=== PATIENT | female | born 1950 | race Caucasian/White ===

== ENCOUNTER 2017-01-24 14:08 | Outpatient (CLI) | payer MEDICARE | END 2017-01-24 14:09 | disposition home or self-care (01) | DX: Z87.19 Personal history of other diseases of the digestive system (principal); E78.5 Hyperlipidemia, unspecified; Z78.9 Other specified health status ==

== ENCOUNTER 2017-02-08 13:33 | Outpatient (CLI) | payer MEDICARE, OTHER | END 2017-02-08 13:34 | disposition home or self-care (01) | DX: Z12.31 Encounter for screening mammogram for malignant neoplasm of breast (principal) ==

== ENCOUNTER 2017-02-08 14:10 | Outpatient (CLI) | payer MEDICARE, OTHER | END 2017-02-08 14:11 | disposition home or self-care (01) | DX: M85.89 Other specified disorders of bone density and structure, multiple sites (principal) ==

== ENCOUNTER 2017-02-28 16:16 | Outpatient (CLI) | payer MEDICARE, OTHER | END 2017-02-28 16:17 | disposition home or self-care (01) | DX: R10.9 Unspecified abdominal pain (principal); Z87.19 Personal history of other diseases of the digestive system ==

== ENCOUNTER 2017-03-01 09:15 | Outpatient (CLI) | payer MEDICARE, OTHER ==
[2017-03-01] MEDS ORDERED: IOPAMIDOL-300 50 ML VIAL PO ONE (12:24)
[2017-03-01] MEDS ORDERED: IOPAMIDOL-300 100 ML VIAL IVP ONE (12:24)
== END 2017-03-01 09:16 | disposition home or self-care (01) ==
DX: R10.9 Unspecified abdominal pain (principal); Z87.19 Personal history of other diseases of the digestive system; K57.30 Diverticulosis of large intestine without perforation or abscess without bleeding
CPT/HCPCS: 74177; Q9967

== ENCOUNTER 2018-01-08 11:07 | Outpatient (CLI) | payer MEDICARE, OTHER ==
[2018-01-08 12:25] LABS: BASOPHILS # (AUTO) 0.1 10^3/uL (0.0-0.1); BASOPHILS % (AUTO) 1.1 %; EOSINOPHILS # (AUTO) 0.1 10^3/uL (0.0-0.7); EOSINOPHILS % (AUTO) 2.7 %; HGB - HEMOGLOBIN 14.4 g/dL (12.0-16.0); LYMPHOCYTES % (AUTO) 20.6 %; MEAN CORPUSCULAR HEMOGLOBIN 31.2 pg (27.0-31.0); MEAN CORPUSCULAR VOLUME 91.6 fL (81.0-99.0); MEAN PLATELET VOLUME 8.3 fL (7.9-10.8); MONOCYTES # (AUTO) 0.5 10^3/uL (0.0-1.0); MONOCYTES % (AUTO) 9.2 %; NEUTROPHILS # (AUTO) 3.3 10^3/uL (1.5-6.6); NEUTROPHILS % (AUTO) 66.4 %; PLT - PLATELET COUNT 197 10^3/uL (130-450); RED BLOOD COUNT 4.63 10^6/uL (4.20-5.40); RED CELL DISTRIBUTION WIDTH 12.9 % (12.0-15.0)
[2018-01-08 12:43] LABS: ALBUMIN 4.4 g/dL (3.2-5.5); ALBUMIN/GLOBULIN RATIO 1.4 (1.0-2.2); ALKALINE PHOSPHATASE 57 IU/L (42-121); ALT ALANINE AMINOTRANSFERASE 20 IU/L (10-60); AST ASPARTATE AMINOTRANSFERASE 24 IU/L (10-42); BILIRUBIN,TOTAL 0.3 mg/dL (0.2-1.0); BUN - BLOOD UREA NITROGEN 12 mg/dL (6-20); CALCIUM 9.6 mg/dL (8.5-10.3); CARBON DIOXIDE - CO2 27 mmol/L (21-32); CHLORIDE 101 mmol/L (101-111); CHOL/HDL RATIO 3.7 (<4.4); CHOLESTEROL 195 mg/dL; CREATININE 0.6 mg/dL (0.4-1.0); GFR - MDRD 100 (>89); GLUCOSE 100 mg/dL (70-100); HDL CHOLESTEROL 53 mg/dL; LDL CHOLESTEROL,CALCULATED 108 mg/dL; SODIUM 140 mmol/L (135-145); TOTAL PROTEIN 7.6 g/dL (6.7-8.2); VLDL CHOLESTEROL 34 mg/dL
== END 2018-01-08 11:08 | disposition home or self-care (01) ==
LOC: LAB 11:07
PROVIDERS: ATTEND Family Medicine
DX: M85.80 Other specified disorders of bone density and structure, unspecified site (principal); E78.5 Hyperlipidemia, unspecified
CPT/HCPCS: 36415; 80053; 80061; 83721; 85025

== ENCOUNTER 2018-02-11 16:39 | Outpatient (CLI) | payer MEDICARE, OTHER ==
[2018-02-11 16:58] LABS: BASOPHILS # (AUTO) 0.1 10^3/uL (0.0-0.1); BASOPHILS % (AUTO) 0.9 %; EOSINOPHILS # (AUTO) 0.1 10^3/uL (0.0-0.7); EOSINOPHILS % (AUTO) 1.8 %; HGB - HEMOGLOBIN 14.3 g/dL (12.0-16.0); LYMPHOCYTES # (AUTO) 1.7 10^3/uL (1.5-3.5); LYMPHOCYTES % (AUTO) 26.5 %; MEAN CORPUSCULAR HEMOGLOBIN 30.5 pg (27.0-31.0); MEAN CORPUSCULAR HGB CONC 32.9 g/dL (32.0-36.0); MEAN CORPUSCULAR VOLUME 92.6 fL (81.0-99.0); MEAN PLATELET VOLUME 7.6 fL (7.9-10.8); MONOCYTES # (AUTO) 0.7 10^3/uL (0.0-1.0); MONOCYTES % (AUTO) 11.2 %; NEUTROPHILS # (AUTO) 3.8 10^3/uL (1.5-6.6); NEUTROPHILS % (AUTO) 59.6 %; PLT - PLATELET COUNT 230 10^3/uL (130-450); RED CELL DISTRIBUTION WIDTH 12.9 % (12.0-15.0); WHITE BLOOD COUNT 6.3 x10^3/uL (4.8-10.8)
[2018-02-11 17:09] LABS: ALBUMIN 4.3 g/dL (3.2-5.5); ALBUMIN/GLOBULIN RATIO 1.5 (1.0-2.2); BILIRUBIN,TOTAL 0.6 mg/dL (0.2-1.0); CALCIUM 9.7 mg/dL (8.5-10.3); CREATININE 0.6 mg/dL (0.4-1.0); TOTAL PROTEIN 7.2 g/dL (6.7-8.2)
[2018-02-11] MEDS ORDERED: IOPAMIDOL-300 50 ML VIAL ONE (17:20)
[2018-02-11] MEDS ORDERED: IOPAMIDOL-300 100 ML VIAL ONE (17:20)
[2018-02-11] MEDS ORDERED: IOPAMIDOL-300 50 ML VIAL PO ONE (19:01)
[2018-02-11] MEDS ORDERED: IOPAMIDOL-300 100 ML VIAL IVP ONE (19:01)
--- NOTE | 2018-02-11 19:33 | CT Preliminary Report ---
Exam: CT ABDOMEN/PELVIS W/ IMPRESSION: Negative CT abdomen and pelvis without findings to explain right-sided pain. [facility] SITE ID: [id number]
--- NOTE | 2018-02-11 19:33 | CT Report ---
EXAM: CT ABDOMEN AND PELVIS EXAM DATE: 02/11/2018 07:01 PM. CLINICAL HISTORY: ABDOMINAL PAIN, RLQ. COMPARISONS: 03/01/2017. TECHNIQUE: Routine helical CT imaging was performed through the abdomen and pelvis. IV contrast: 50 M L ISOVUE 300. Enteric contrast: Yes. Reconstructions: Coronal and sagittal. In accordance with CT protocol optimization, one or more of the following dose reduction techniques w ere utilized for this exam: automated exposure control, adjustment of mA and/or KV based on patient s ize, or use of iterative reconstructive technique. FINDINGS: Lung Bases: Minimal wispy lateral bibasilar atelectasis. Liver: Normal. No masses. Gallbladder/Bile Ducts: Unremarkable. Spleen: Normal. Pancreas: Normal. Adrenal Glands: Normal. Kidneys: 2 cm simple cyst upper pole right kidney, increased from before. Left kidney unremarkable. N o hydronephrosis. Peritoneal Cavity/Bowel: Stomach and small bowel are unremarkable. The appendix is not clearly identi fied. Enteric contrast reaches the proximal transverse colon at the time of the scan. There is a smal l amount of formed stool in the colon. There is mild sigmoid colon diverticulosis. There is no don lonic fat stranding. There is no lymphadenopathy, ascites, or pneumoperitoneum. Pelvic Organs: The bladder, pancreas, and adrenal glands are unremarkable. Vasculature: There is minimal calcification in the normal caliber abdominal aorta. Otherwise unremark able. Bones: Mild bilateral L4-L5 and L5-S1 facet osteoarthritis. Mild degenerative disk disease L3-L4. Other: Abdominal wall unremarkable. IMPRESSION: Negative CT abdomen and pelvis without findings to explain right-sided pain. [facility] Referring Provider Line: [phone] SITE ID: [id number]
== END 2018-02-11 16:40 | disposition home or self-care (01) ==
LOC: LAB 16:39 → DI 16:40
PROVIDERS: ATTEND Family Medicine
DX: R10.31 Right lower quadrant pain (principal)
CPT/HCPCS: 36415; 74177; 80053; 85025; Q9967

== ENCOUNTER 2018-02-13 13:12 | Outpatient (CLI) | payer MEDICARE, OTHER ==
--- NOTE | 2018-02-14 14:06 | Mammography Report ---
DIGITAL BILATERAL SCREENING MAMMOGRAM: 02/13/2018 COMPARISON: Mammogram 02/08/2017. INDICATION: Screening. TECHNIQUE: Bilateral CC and MLO breast views. FINDINGS: The breast parenchyma is heterogeneously dense which may limit the sensitivity of mammography. No dominant mass, architectural distortion, or concerning cluster of microcalcifications are seen. IMPRESSION: 1. BI-RADS CATEGORY 1-NEGATIVE. 2. RECOMMEND ANNUAL SCREENING MAMMOGRAM. STANDARD QUALIFYING STATEMENTS: 1. This examination was reviewed with the aid of Computer-Aided Detection (CAD) . 2. A negative or benign imaging report should not delay biopsy if clinically suspicious findings are present. Consider surgical consultation if warranted. More than 5 % of cancers are not identified by imaging. 3. Dense breasts may obscure an underlying neoplasm. TD: 02/14/2018 14:04 CHRISTINE
== END 2018-02-13 13:13 | disposition home or self-care (01) ==
LOC: DI 13:12
PROVIDERS: ATTEND Family Medicine
DX: Z12.31 Encounter for screening mammogram for malignant neoplasm of breast (principal)
CPT/HCPCS: 77067

== ENCOUNTER 2018-04-09 08:00 | Outpatient (CLI) | payer MEDICARE, OTHER | END 2018-04-09 08:01 | disposition home or self-care (01) | LOC: LAB.R 08:00 | PROVIDERS: ATTEND Family Medicine | DX: R30.0 Dysuria (principal) | CPT/HCPCS: 87086 ==

== ENCOUNTER 2018-04-23 12:57 | Outpatient (CLI) | payer MEDICARE, OTHER ==
[2018-04-23 18:48] LABS: HGB - HEMOGLOBIN 13.6 g/dL (12.0-16.0); MEAN CORPUSCULAR HEMOGLOBIN 30.5 pg (27.0-31.0); MEAN CORPUSCULAR HGB CONC 32.5 g/dL (32.0-36.0); MEAN CORPUSCULAR VOLUME 93.9 fL (81.0-99.0); MEAN PLATELET VOLUME 8.1 fL (7.9-10.8); RED BLOOD COUNT 4.45 10^6/uL (4.20-5.40); RED CELL DISTRIBUTION WIDTH 12.8 % (12.0-15.0)
[2018-04-23 19:09] LABS: URIC ACID 4.3 mg/dL (2.6-7.2)
[2018-04-23 19:11] LABS: CRP - C-REACTIVE PROTEIN < 1.0 mg/dL (0-1.0)
[2018-04-23 19:37] LABS: RHEUMATOID FACTOR NEGATIVE (Negative)
== END 2018-04-23 12:58 | disposition home or self-care (01) ==
LOC: LAB.WCP 12:57
PROVIDERS: ATTEND Family Medicine
DX: R79.82 Elevated C-reactive protein (CRP) (principal)
CPT/HCPCS: 36415; 84550; 85027; 85651; 86140; 86200; 86430

== ENCOUNTER 2019-04-20 16:43 | Outpatient (CLI) | payer MEDICARE, OTHER ==
--- NOTE | 2019-04-21 10:29 | Mammography Report ---
Reason: SCREENING MAMMO Procedure Date: 04/20/2019 Accession Number: [id number] / [id number] Procedure: [facility] - Screening Mammo w/Jose CPT Code: FULL RESULT: EXAM: Screening Mammo w/Jose DATE: 04/20/2019 5:17 PM CLINICAL HISTORY: Screening encounter. No reported risk factors. TECHNIQUE: (B) - Bilateral CC and MLO views were obtained. COMPARISON: 02/13/2018 and 02/08/2017. PARENCHYMAL PATTERN: (A) - The breast(s) demonstrate(s) scattered fibroglandular densities. FINDINGS: There are no suspicious masses, calcifications, or areas of distortion. IMPRESSION: Negative examination. BI-RADS category 1. RECOMMENDATION: (ANNUAL) - Recommend routine annual screening mammography. BI-RADS CATEGORY: (1) - Negative. STANDARD QUALIFYING STATEMENTS: 1. This examination was not reviewed with the aid of Computer-Aided Detection (CAD). 2. A negative or benign imaging report should not preclude biopsy if clinically suspicious findings are present. 3. Dense breasts may obscure an underlying neoplasm. 4. This examination was reviewed with the aid of 3D breast imaging (tomosynthesis).
== END 2019-04-20 16:44 | disposition home or self-care (01) ==
LOC: DI 16:43
DX: Z12.31 Encounter for screening mammogram for malignant neoplasm of breast (principal)
CPT/HCPCS: 77063; 77067

== ENCOUNTER 2019-07-30 14:32 | Outpatient (CLI) | payer MEDICARE, OTHER ==
--- NOTE | 2019-07-31 13:39 | XRAY Report ---
Reason: RIGHT KNEE PAIN Procedure Date: 07/30/2019 Accession Number: [id number] / [id number] Procedure: [facility] - Knee 3 View RT CPT Code: FULL RESULT: EXAM: RIGHT KNEE RADIOGRAPHY EXAM DATE: 07/30/2019 02:32 PM. CLINICAL HISTORY: RIGHT KNEE PAIN. COMPARISON: None. TECHNIQUE: 3 views. FINDINGS: Bones: Normal. No fractures or bone lesions. Joints: Normal. No effusion. No subluxations. Soft Tissues: Normal. No soft tissue swelling. IMPRESSION: Normal knee radiography. [facility]
== END 2019-07-30 23:59 | disposition home or self-care (01) ==
LOC: DI.WCP 14:32
PROVIDERS: ATTEND Family Medicine
DX: M25.561 Pain in right knee (principal)

== ENCOUNTER 2019-10-06 13:45 | Outpatient (CLI) | payer MEDICARE, OTHER ==
[2019-10-06] MEDS ORDERED: IOVERSOL 320 50 ML VIAL ONE (14:17)
[2019-10-06] MEDS ORDERED: IOVERSOL 320 100 ML VIAL IVP ONE ×2 (14:17→16:56)
[2019-10-06 14:20] LABS: BASOPHILS # (AUTO) 0.1 10^3/uL (0.0-0.1); BASOPHILS % (AUTO) 0.6 %; EOSINOPHILS # (AUTO) 0.1 10^3/uL (0.0-0.7); EOSINOPHILS % (AUTO) 1.6 %; HGB - HEMOGLOBIN 15.1 g/dL (12.0-16.0); LYMPHOCYTES # (AUTO) 1.7 10^3/uL (1.5-3.5); LYMPHOCYTES % (AUTO) 19.4 %; MEAN CORPUSCULAR HEMOGLOBIN 30.3 pg (27.0-31.0); MEAN CORPUSCULAR HGB CONC 31.9 g/dL (32.0-36.0); MEAN PLATELET VOLUME 9.7 fL (7.9-10.8); MONOCYTES # (AUTO) 0.7 10^3/uL (0.0-1.0); MONOCYTES % (AUTO) 7.9 %; PLT - PLATELET COUNT 285 10^3/uL (130-450); RED BLOOD COUNT 4.99 10^6/uL (4.20-5.40); RED CELL DISTRIBUTION WIDTH 12.7 % (12.0-15.0); WHITE BLOOD COUNT 8.6 x10^3/uL (4.8-10.8)
[2019-10-06 14:35] LABS: ALBUMIN 4.2 g/dL (3.2-5.5); ALBUMIN/GLOBULIN RATIO 1.2 (1.0-2.2); BILIRUBIN,TOTAL 0.3 mg/dL (0.2-1.0); CALCIUM 9.7 mg/dL (8.5-10.3); CREATININE 0.6 mg/dL (0.4-1.0); TOTAL PROTEIN 7.7 g/dL (6.7-8.2)
--- NOTE | 2019-10-06 15:46 | CT Report ---
Reason: ABD PAIN RLQ Procedure Date: 10/06/2019 Accession Number: [id number] / [id number] Procedure: CT - Abdomen/Pelvis W CPT Code: Final Report FULL RESULT: EXAM: CT ABDOMEN AND PELVIS EXAM DATE: 10/06/2019 03:00 PM. CLINICAL HISTORY: Abdominal pain right lower quadrant. COMPARISONS: ABDOMEN/PELVIS W/ 02/11/2018 6:43 PM. ABDOMEN/PELVIS W/ 03/01/2017 12:17 PM. TECHNIQUE: Routine helical CT imaging was performed through the abdomen and pelvis. IV contrast: Opti 320 90 mL. Enteric contrast: Yes. Reconstructions:Coronal and sagittal. In accordance with CT protocol optimization, one or more of the following dose reduction techniques were utilized for this exam: automated exposure control, adjustment of mA and/or KV based on patient size, or use of iterative reconstructive technique. FINDINGS: Lung Bases: Unremarkable. Liver: Normal. No masses. Gallbladder/Bile Ducts: Unremarkable. Spleen: Normal. Pancreas: Normal. Adrenal Glands: Normal. Kidneys: Stable indeterminate right superior pole 2.3 cm hypodensity. No hydronephrosis. This finding is enlarged compared to 2017. Peritoneal Cavity/Bowel: There is marked distention of the stomach with prominent thickening and partial distention of the pylorus and proximal portion of the first duodenum, suggestion of masslike circumferential thickening causing partial gastric outlet obstruction. The descending colon is collapsed with subtle mucosal hyperenhancement and engorgement of the vascular arcade which can be seen with colitis. The sigmoid colon is normally filled with stool but appears to be thickened in the region of diverticuli without definite focal diverticulitis at this time, potentially resolving or prior diverticulitis in this area. There is no lymphadenopathy by size criteria. There is no bowel obstruction. There is no free fluid or free air. The patient is status post appendectomy. Pelvic Organs: Normal. The bladder and visualized pelvic organs are within normal limits. Vasculature: No aneurysms or other significant abnormality. Bones: No significant abnormality. Other: None. IMPRESSION: Recommend upper endoscopy for clarification of the status of the pyloric sphincter and proximal duodenum with question of partial gastric outlet obstruction as described above. Segmental thickening and engorgement of the descending colon with additional segment of thickened bowel in the sigmoid colonic distribution. Colitis or recent diverticulitis would be in the differential diagnosis. Recommend routine retroperitoneal ultrasound for clarification of the hypodense lesion in the superior pole of the right kidney, determine whether this may represent a simple cyst or warrants further workup. [facility] The call report notification system was initiated by Dr. Juan Cao at 03:34 PM on 10/06/2019. The above call report findings were discussed with Dr Gaitan by Dr. Juan Cao at 03:43 PM on 10/06/2019.
[2019-10-06] MEDS ORDERED: IOVERSOL 320 50 ML VIAL PO ONE (16:56)
== END 2019-10-06 13:46 | disposition home or self-care (01) ==
LOC: DI 13:45
PROVIDERS: ATTEND Family Medicine
DX: R10.31 Right lower quadrant pain (principal); K31.89 Other diseases of stomach and duodenum; N28.9 Disorder of kidney and ureter, unspecified
CPT/HCPCS: 36415; 74177; 80053; 83690; 85025; Q9967

== ENCOUNTER 2019-10-14 08:45 | Day surgery (SDC) | payer MEDICARE, OTHER ==
[2019-10-14] MEDS ORDERED: MIDAZOLAM 2 MG/2 ML VIAL IVP ONE (08:46)
[2019-10-14] MEDS ORDERED: fentaNYL 250 MCG/5 ML VIAL IVP ONE (08:46)
[2019-10-14] MEDS ORDERED: LACTATED RINGERS 1,000 ML IV ONE (09:06)
[2019-10-14] MEDS ORDERED: ONDANSETRON 4 MG/2 ML VIAL ONE (10:48)
[2019-10-14] MEDS ORDERED: SCOPOLAMINE PATCH TOP ONE (10:48)
[2019-10-14] MEDS ORDERED: LIDO GARGLE 30 ML BOTTLE PO ONE (11:24)
[2019-10-14] MEDS ORDERED: LIDO GARGLE 30 ML BOTTLE ONE (11:29)
[2019-10-14 13:19] VITALS: BP 94/62
== END 2019-10-14 08:46 | disposition home or self-care (01) ==
LOC: SDS 08:45
PROVIDERS: ATTEND Surgery
PROC: 0DB68ZZ Excision of Stomach, Via Natural or Artificial Opening Endoscopic (ICD-10-PCS; 2019-10-14)
PROC: 0DB38ZZ Excision of Lower Esophagus, Via Natural or Artificial Opening Endoscopic (ICD-10-PCS; 2019-10-14)
PROC: 0DJD8ZZ Inspection of Lower Intestinal Tract, Via Natural or Artificial Opening Endoscopic (ICD-10-PCS; principal; 2019-10-14 10:15)
PROC: 0DB98ZZ Excision of Duodenum, Via Natural or Artificial Opening Endoscopic (ICD-10-PCS; 2019-10-14 10:15)
DX: Z12.11 Encounter for screening for malignant neoplasm of colon (principal); K22.70 Barrett's esophagus without dysplasia; K31.7 Polyp of stomach and duodenum; K57.30 Diverticulosis of large intestine without perforation or abscess without bleeding; K44.9 Diaphragmatic hernia without obstruction or gangrene; K64.8 Other hemorrhoids; Z90.49 Acquired absence of other specified parts of digestive tract; Z87.19 Personal history of other diseases of the digestive system; Z87.891 Personal history of nicotine dependence
CPT/HCPCS: 43239; A9270; G0121; J3010; J3490; J7120

== ENCOUNTER 2020-06-16 16:36 | Outpatient (CLI) | payer MEDICARE, OTHER | END 2020-06-16 16:37 | disposition critical access hospital (66) | LOC: EMS 16:36 | PROVIDERS: ATTEND Surgery | DX: S89.92XA Unspecified injury of left lower leg, initial encounter (principal); W17.89XA Other fall from one level to another, initial encounter; Y93.01 Activity, walking, marching and hiking; Y92.008 Other place in unspecified non-institutional (private) residence as the place of occurrence of the external cause | CPT/HCPCS: A0425; A0429 ==

== ENCOUNTER 2020-06-16 16:57 | Emergency (ER) | payer MEDICARE, OTHER ==
[2020-06-16] MEDS ORDERED: HYDROcod/ACETAM 5/325 MG TABLET PO STA (17:31)
--- NOTE | 2020-06-16 18:54 | XRAY Report ---
PROCEDURE: Ankle 3 View LT INDICATIONS: Trauma, fall, with pain and swelling of the left ankle TECHNIQUE: 3 views of the ankle were acquired. COMPARISON: None FINDINGS: Bones: No fractures or dislocations. Ankle mortise is normally aligned. No suspicious bony lesions . Soft tissues: No tibiotalar joint effusion. Achilles tendon appears normal. IMPRESSION: Normal left ankle radiographs Reviewed by: Erick Phelan MD on 06/16/2020 6:53 PM PDT Approved by: Erick Phelan MD on 06/16/2020 6:53 PM PDT Station ID: [id number]
--- NOTE | 2020-06-16 18:55 | XRAY Report ---
PROCEDURE: Knee 4 View LT INDICATIONS: Trauma, fall, left knee pain and swelling TECHNIQUE: 3 views of the left knee(s) were acquired. COMPARISON: None. FINDINGS: These images demonstrate linear lucencies through the articular surface of the lateral tibial plateau which suggest a mildly depressed tibial plateau fracture. There is also a band of sclerosis subjacen t to the articular surface which presumably represents increased density due to trabecular compaction . There is a lipohemarthrosis. IMPRESSION: Depressed lateral tibial plateau fracture with moderate-sized lipohemarthrosis. Reviewed by: Erick Phelan MD on 06/16/2020 6:54 PM PDT Approved by: Erick Phelan MD on 06/16/2020 6:54 PM PDT Station ID: [id number]
[2020-06-16] MEDS ORDERED: HYDROcod/ACET 5/325 Prepack 4 PO STA (19:21)
--- NOTE | 2020-06-16 19:25 | ED Physician Documentation ---
PD HPI LOWER EXT INJURY - Stated complaint Stated Complaint: KNEE INJURY - Chief complaint Chief Complaint: Trauma Ext - History obtained from History obtained from: Patient - Additional information Additional information: Patient comes emergency department complaining of left knee pain after accidentally stepping 2 to 3 feet off her deck. Patient states she was not expecting the step off the deck and came down very hard on her left lower extremity. She states she landed on her foot, but noticed a "pop" and felt immediately pain in her knee. She states she also has noticed a little bit of pain and swelling in the left ankle. Patient states she did not have any other injuries. She has no prior history of injury to her left knee. Patient denies any other complaints at this time. She states the incident happened earlier today. She has not been able to bear weight because of the pain. Review of Systems Ten Systems: 10 systems reviewed and negative Constitutional: reports: Reviewed and negative Eyes: reports: Reviewed and negative Ears: reports: Reviewed and negative Nose: reports: Reviewed and negative Throat: reports: Reviewed and negative Cardiac: reports: Reviewed and negative Respiratory: reports: Reviewed and negative GI: reports: Reviewed and negative : reports: Reviewed and negative Skin: reports: Reviewed and negative Musculoskeletal: reports: Joint pain (Left knee and left ankle.), Joint swelling Neurologic: reports: Reviewed and negative Psychiatric: reports: Reviewed and negative Endocrine: reports: Reviewed and negative Immunocompromised: reports: Reviewed and negative PD PAST MEDICAL HISTORY - Past Medical History Past Medical History: No - Past Surgical History Past Surgical History: No - Present Medications Home Medications: Ambulatory Orders Medication Instructions Recorded Confirmed Citalopram Hydrobromide [Celexa] 40 mg PO DAILY 10/13/19 10/13/19 Lorazepam [Ativan] 1 mg PO PRN PRN 10/13/19 10/13/19 Rabeprazole Sodium [Aciphex] 20 mg PO DAILY 10/13/19 10/13/19 Rizatriptan Benzoate [Maxalt] 30 mg PO PRN PRN 10/13/19 10/13/19 Simvastatin 40 mg PO DAILY 10/13/19 10/13/19 Hydrocodone/Acetaminophen 1 - 2 each PO Q6H PRN #30 tablet 06/16/20 [Hydrocodon-Acetaminophen 5-325] - Allergies Allergies/Adverse Reactions: Allergies Allergy/AdvReac Type Severity Reaction Status Date / Time No Known Drug Allergies Allergy Verified 06/16/20 17:19 - Social History Does the pt smoke?: No Smoking Status: Never smoker PD ED PE NORMAL - Vitals Vital signs reviewed: Yes - General General: Alert and oriented X 3, No acute distress - HEENT HEENT: Atraumatic, PERRL, EOMI, Moist mucous membranes - Neck Neck: Supple, no meningeal sign - Cardiac Cardiac: RRR, No murmur, Strong equal pulses - Respiratory Respiratory: No respiratory distress, Clear bilaterally - Back Back: No spinal TTP - Derm Derm: Normal color, Warm and dry, No rash - Extremities Extremities: No deformity, Other (Patient has moderate edema of her left knee and mild edema of the left ankle. Very limited range of motion of the knee secondary to pain, but is able to lift her nearly straight and leg off bed w/ heel suspended. Joint line tenderness medially and laterally. No range of motion limitation of ankle.) - Neuro Neuro: Alert and oriented X 3 - Psych Psych: Normal mood, Normal affect Results - Vitals Vitals: Oxygen O2 Source Room air - Rads (name of study) L knee xr Radiology: Final report received, EMP read indepedently, See rad report (Final radiologist impression: Depressed lateral tibial plateau fracture with moderate sized lipohemarthrosis.) L ankle XR Radiology: Final report received, EMP read indepedently, See rad report (Negative) PD MEDICAL DECISION MAKING - ED course Complexity details: reviewed results, re-evaluated patient, considered differential, d/w patient, d/w family ED course: The patient was worked up with x-rays of the left knee and ankle. Ankle x-rays were unremarkable, but the knee x-ray did show a tibial plateau fracture. I discussed the case with Dr. Santos, who is on-call for orthopedics and he stated that the patient could follow-up in clinic with him. He requested an articulating knee brace if possible and stated the patient could use toe-touch weight-bearing, but should generally use crutches. I discussed this plan with the patient and her , who were agreeable. The patient had been given analgesics in the emergency department and was given a prepack of Vicodin for at home, as well as a prescription. She was placed in an articulating knee brace and given a pair of crutches. We have discussed that she should call first thing tomorrow to set up her follow-up appointment with Dr. Santos, who would like to see her in 7 to 10 days. We have discussed the usual indications for return. Departure - Departure Disposition: 01 Home, Self Care Clinical Impression: Tibial plateau fracture, left Qualifiers: Encounter type: initial encounter Fracture type: closed Qualified Code(s): S82.142A - Displaced bicondylar fracture of left tibia, initial encounter for closed fracture Left ankle sprain Qualifiers: Encounter type: initial encounter Involved ligament of ankle: unspecified ligament Qualified Code(s): S93.402A - Sprain of unspecified ligament of left ankle, initial encounter Condition: Stable Instructions: ED Fx Lower Ext Follow-Up: Ben Santos MD [Provider Admit Priv/Credential] - Prescriptions: Hydrocodone/Acetaminophen [Hydrocodon-Acetaminophen 5-325] 1 - 2 each PO Q6H PRN #30 tablet PRN Reason: pain Comments: Your ankle x-rays look good. Your knee x-ray series shows a tibial plateau fracture, which is a fracture involving the joint surface of the tibia at the knee. As we have discussed, your case has been discussed with the orthopedic surgeon on-call, Dr. Ayers, who says that you may use crutches and should keep your knee in the brace until you follow-up in their clinic. He says you can do toe-touch weightbearing, but should not put full weight on your left leg/foot until cleared by orthopedics to do so. He would like to see you in clinic in the next 7 to 10 days. Please call first thing tomorrow to make an appointment for follow-up. This injury is not expected to need surgery. Please take the prescribed pain medicine, as well as ibuprofen, as needed for pain. Please elevate and ice your knee to help with discomfort, as well. Discharge Date/Time: 06/16/20 19:44
[2020-06-16 19:37] VITALS: BP 101/63
== END 2020-06-16 19:44 | disposition home or self-care (01) ==
LOC: EDUNIT# → ED 16:57
DX: S82.142A Displaced bicondylar fracture of left tibia, initial encounter for closed fracture (principal); S93.402A Sprain of unspecified ligament of left ankle, initial encounter; W17.89XA Other fall from one level to another, initial encounter; Y93.01 Activity, walking, marching and hiking; Y92.008 Other place in unspecified non-institutional (private) residence as the place of occurrence of the external cause
CPT/HCPCS: 73564; 73610; 99283; 99284; A9270

== ENCOUNTER 2020-07-29 13:52 | Outpatient (CLI) | payer MEDICARE, OTHER ==
--- NOTE | 2020-07-29 16:50 | XRAY Report ---
PROCEDURE: Knee 3 View LT INDICATIONS: LT KNEE PAIN TECHNIQUE: 3 views of the left knee were acquired. COMPARISON: 06/16/2020. FINDINGS: Bones: There is a healing relatively nondepressed fracture of the lateral tibial plateau with the fr acture line less distinct in appearance. No new fracture or dislocation. There is mild lateral tilt o f the patella. Visualized osseous structures demonstrate increased disuse osteopenia. Soft tissues: There is a moderate-sized joint effusion. No suspicious soft tissue calcifications. IMPRESSION: 1. Healing fracture of the lateral tibial plateau. 2. Increased disuse osteopenia. 3. Moderate size joint effusion. Reviewed by: Jamison Lew MD on 07/29/2020 4:49 PM PDT Approved by: Jamison Lew MD on 07/29/2020 4:49 PM PDT Station ID: [id number]
== END 2020-07-29 13:53 | disposition home or self-care (01) ==
LOC: DI 13:52
PROVIDERS: ATTEND Orthopaedic Surgery
DX: M25.562 Pain in left knee (principal); M85.862 Other specified disorders of bone density and structure, left lower leg; M25.462 Effusion, left knee; S82.142D Displaced bicondylar fracture of left tibia, subsequent encounter for closed fracture with routine healing

== ENCOUNTER 2020-08-05 09:26 | Outpatient (CLI) | payer MEDICARE, OTHER ==
[2020-08-05 09:37] LABS: BASOPHILS # (AUTO) 0.1 10^3/uL (0.0-0.1); BASOPHILS % (AUTO) 0.9 %; EOSINOPHILS # (AUTO) 0.1 10^3/uL (0.0-0.7); EOSINOPHILS % (AUTO) 1.9 %; HGB - HEMOGLOBIN 15.5 g/dL (12.0-16.0); LYMPHOCYTES # (AUTO) 1.2 10^3/uL (1.5-3.5); LYMPHOCYTES % (AUTO) 21.9 %; MEAN CORPUSCULAR HEMOGLOBIN 32.1 pg (27.0-31.0); MEAN CORPUSCULAR HGB CONC 33.1 g/dL (32.0-36.0); MEAN CORPUSCULAR VOLUME 96.9 fL (81.0-99.0); MEAN PLATELET VOLUME 9.1 fL (7.9-10.8); MONOCYTES # (AUTO) 0.5 10^3/uL (0.0-1.0); MONOCYTES % (AUTO) 8.5 %; NEUTROPHILS # (AUTO) 3.8 10^3/uL (1.5-6.6); NEUTROPHILS % (AUTO) 66.4 %; PLT - PLATELET COUNT 231 10^3/uL (130-450); RED BLOOD COUNT 4.83 10^6/uL (4.20-5.40); RED CELL DISTRIBUTION WIDTH 12.2 % (12.0-15.0); WHITE BLOOD COUNT 5.7 x10^3/uL (4.8-10.8)
[2020-08-05 09:56] LABS: ALBUMIN 4.2 g/dL (3.2-5.5); ALBUMIN/GLOBULIN RATIO 1.4 (1.0-2.2); ALKALINE PHOSPHATASE 61 IU/L (42-121); ALT ALANINE AMINOTRANSFERASE 19 IU/L (10-60); AST ASPARTATE AMINOTRANSFERASE 24 IU/L (10-42); BILIRUBIN,TOTAL 0.7 mg/dL (0.2-1.0); BUN - BLOOD UREA NITROGEN 14 mg/dL (6-20); CALCIUM 9.5 mg/dL (8.5-10.3); CARBON DIOXIDE - CO2 32 mmol/L (21-32); CHLORIDE 98 mmol/L (101-111); CHOL/HDL RATIO 3.7 (<4.4); CHOLESTEROL 202 mg/dL; CREATININE 0.5 mg/dL (0.4-1.0); GLUCOSE 105 mg/dL (70-100); HDL CHOLESTEROL 55 mg/dL; LDL CHOLESTEROL,CALCULATED 108 mg/dL; SODIUM 138 mmol/L (135-145); TOTAL PROTEIN 7.3 g/dL (6.7-8.2); VLDL CHOLESTEROL 39 mg/dL
[2020-08-05 09:57] LABS: CRP - C-REACTIVE PROTEIN < 1.0 mg/dL (0-1.0)
== END 2020-08-05 09:27 | disposition home or self-care (01) ==
LOC: LAB 09:26
PROVIDERS: ATTEND Family Medicine
DX: E78.5 Hyperlipidemia, unspecified (principal); Z79.899 Other long term (current) drug therapy; R79.82 Elevated C-reactive protein (CRP)
CPT/HCPCS: 36415; 80053; 80061; 83721; 85025; 86140

== ENCOUNTER 2020-08-19 10:43 | Outpatient (CLI) | payer MEDICARE, OTHER ==
--- NOTE | 2020-08-19 15:40 | DEXA Report ---
PROCEDURE: Dexa Spine and/or Hip INDICATIONS: BONE DISORDER TECHNIQUE: Dual energy x-ray absorptiometry (DXA) was performed on a [employer] System. Regions measur ed are the AP Spine, femoral neck, and if needed forearm. COMPARISON: 02/08/2017 bone densitometry study same methodology.. FINDINGS: Lumbar Spine: Bone Mineral Density 1.001 g/cm/cm,T score -1.6, osteopenia, with no significant change from the c omparison study 02/08/2017 Left Hip: Bone Mineral Density 0.683 g/cm/cm,T score -2.6, osteoporosis, and this represents a statistically s ignificant 10% reduction in bone mineral density within the left hip area. Left Femoral Neck: Bone Mineral Density 0.628 g/cm/cm, T score -2.9, osteoporosis (T score greater or equal to -1.0: NORMAL) (T score from -1.1 to -2.4: OSTEOPENIA) (T score less than or equal to -2.5 to: OSTEOPOROSIS) Impression: Osteopenia at the lumbosacral spine, osteoporosis of the left hip and left femoral neck. Bone mineral density has not changed significantly of the LS-spine, but has reduced by approximately 10% at the left hip from the comparison study in January 2017. Patients with diagnosis of osteoporosis or osteopenia should have regular bone mineral density assess ment. For those eligible for Medicare, routine testing is allowed once every 2 years. Testing frequ ency can be increased for patients who have rapidly progressing disease or for those who are receivin g medical therapy to restore bone mass. Reviewed by: Bola Arredondo MD on 08/19/2020 3:39 PM PDT Approved by: Bola Arredondo MD on 08/19/2020 3:39 PM PDT Station ID: [id number]
== END 2020-08-19 10:44 | disposition home or self-care (01) ==
LOC: DI 10:43
PROVIDERS: ATTEND Family Medicine
DX: M85.88 Other specified disorders of bone density and structure, other site (principal); M81.0 Age-related osteoporosis without current pathological fracture
CPT/HCPCS: 77080

== ENCOUNTER 2020-08-29 07:42 | Outpatient (CLI) | payer MEDICARE, OTHER ==
--- NOTE | 2020-08-29 12:17 | XRAY Report ---
PROCEDURE: Knee 3 View LT INDICATIONS: LEFT KNEE PAIN TECHNIQUE: 3 views of the left knee(s) were acquired. COMPARISON: None. FINDINGS: Bones: No fractures or dislocations. Mild tricompartmental osteoarthritis is seen. No patellar subl uxation. No suspicious bony lesions. Soft tissues: Small to moderate suprapatellar joint effusion is seen. No suspicious soft tissue calc ifications. IMPRESSION: Mild tricompartment osteoarthritis. No left knee fracture or dislocation. Small suprapat ellar effusion. If indicated, MRI of knee can be done for further evaluation of internal derangement. Reviewed by: Breezy Mauricio MD on 08/29/2020 11:16 AM [facility] Approved by: Breezy Mauricio MD on 08/29/2020 11:16 AM [facility] Station ID: [id number]
== END 2020-08-29 07:43 | disposition home or self-care (01) ==
LOC: DI.WCP 07:42
PROVIDERS: ATTEND Physician Assistant
DX: M17.12 Unilateral primary osteoarthritis, left knee (principal); M25.462 Effusion, left knee

== ENCOUNTER 2021-02-18 15:20 | Emergency (ER) | payer MEDICARE, OTHER ==
[2021-02-18] MEDS ORDERED: SODIUM CHLORIDE 0.9% 1,000 ML IV STA ×2 (15:44)
[2021-02-18 15:56] LABS: BASOPHILS % (AUTO) 0.6 %; EOSINOPHILS # (AUTO) 0.1 10^3/uL (0.0-0.7); EOSINOPHILS % (AUTO) 1.4 %; HCT - HEMATOCRIT 46.6 % (37.0-47.0); HGB - HEMOGLOBIN 15.3 g/dL (12.0-16.0); LYMPHOCYTES # (AUTO) 1.5 10^3/uL (1.5-3.5); LYMPHOCYTES % (AUTO) 22.7 %; MEAN CORPUSCULAR HGB CONC 32.8 g/dL (32.0-36.0); MEAN CORPUSCULAR VOLUME 94.3 fL (81.0-99.0); MEAN PLATELET VOLUME 9.8 fL (7.9-10.8); MONOCYTES # (AUTO) 0.6 10^3/uL (0.0-1.0); NEUTROPHILS # (AUTO) 4.3 10^3/uL (1.5-6.6); PLT - PLATELET COUNT 223 10^3/uL (130-450); RED BLOOD COUNT 4.94 10^6/uL (4.20-5.40); RED CELL DISTRIBUTION WIDTH 12.5 % (12.0-15.0); WHITE BLOOD COUNT 6.4 x10^3/uL (4.8-10.8)
--- NOTE | 2021-02-18 15:56 | ED Physician Documentation ---
History of Present Illness - Stated complaint Stated Complaint: ABD PX - Chief complaint Chief Complaint: Abd Pain - History obtained from History obtained from: Patient - History of Present Illness Timing: How many days ago (2) Pain level max: 5 Pain level now: 3 - Additonal information Additional information: Patient is a 70-year-old female who presents to the emergency department with left lower quadrant abdominal pain and bright red blood per rectum 3 times over the past 2 days. She states she has a history of diverticulitis and ischemic colitis. No fevers. No chills. Nothing makes it better or worse. Has had this several times in the past. Review of Systems Ten Systems: 10 systems reviewed and negative Constitutional: denies: Fever, Chills Respiratory: denies: Cough GI: denies: Vomiting : denies: Dysuria Skin: denies: Rash Musculoskeletal: denies: Neck pain Neurologic: denies: Headache PD PAST MEDICAL HISTORY - Past Medical History Past Medical History: No - Past Surgical History Past Surgical History: No - Present Medications Home Medications: Ambulatory Orders Medication Instructions Recorded Confirmed Citalopram Hydrobromide [Celexa] 40 mg PO DAILY 10/13/19 02/18/21 Lorazepam [Ativan] 1 mg PO PRN PRN 10/13/19 02/18/21 Rabeprazole Sodium [Aciphex] 20 mg PO DAILY 10/13/19 02/18/21 Rizatriptan Benzoate [Maxalt] 30 mg PO PRN PRN 10/13/19 02/18/21 Simvastatin 40 mg PO DAILY 10/13/19 02/18/21 Amox/Clav 875/125 [Augmentin] 1 each PO Q8H #30 tablet 02/18/21 - Allergies Allergies/Adverse Reactions: Allergies Allergy/AdvReac Type Severity Reaction Status Date / Time No Known Drug Allergies Allergy Verified 02/18/21 15:28 - Living Situation Living Situation: reports: With family Living Arrangement: reports: At home - Social History Does the pt smoke?: No Smoking Status: Never smoker Does the pt have substance abuse?: No PD ED PE NORMAL - Vitals Vital signs reviewed: Yes - General General: Alert and oriented X 3, No acute distress, Well developed/nourished - HEENT HEENT: Moist mucous membranes - Neck Neck: Supple, no meningeal sign - Cardiac Cardiac: RRR, Strong equal pulses - Respiratory Respiratory: No respiratory distress, Clear bilaterally - Abdomen Abdomen: Soft, Non distended, Other (Tender to palpation left lower quadrant without peritoneal signs) - Back Back: No CVA TTP, No spinal TTP - Derm Derm: Warm and dry - Extremities Extremities: No edema - Neuro Neuro: Alert and oriented X 3 - Psych Psych: Normal mood, Normal affect Results - Vitals Vitals: Vital Signs - 24 hr 02/18/21 02/18/21 15:25 17:56 Temperature 36.0 C L Heart Rate 89 76 Respiratory 16 20 Rate Blood Pressure 126/70 122/74 O2 Saturation 95 98 Oxygen O2 Source Room air - Labs Labs: Laboratory Tests 02/18/21 02/18/21 02/18/21 15:44 15:44 15:50 WBC 6.4 RBC 4.94 Hgb 15.3 Hct 46.6 MCV 94.3 MCH 31.0 MCHC 32.8 RDW 12.5 Plt Count 223 MPV 9.8 Neut # (Auto) 4.3 Lymph # (Auto) 1.5 [place] # (Auto) 0.6 Eos # (Auto) 0.1 Baso # (Auto) 0.0 Absolute Nucleated RBC 0.00 Nucleated RBC % 0.0 Sodium 139 Potassium 3.6 Chloride 103 Carbon Dioxide 23 Anion Gap 13.0 BUN 12 Creatinine 0.6 Estimated GFR (MDRD) 99 Glucose 110 H Lactic Acid 1.0 Calcium 9.0 Total Bilirubin 1.1 H AST 19 ALT 13 Alkaline Phosphatase 49 Total Protein 7.5 Albumin 4.2 Globulin 3.3 Albumin/Globulin Ratio 1.3 Lipase 22 - Rads (name of study) CT abdomen and pelvis Radiology: Prelim report reviewed, EMP read contemporaneously, See rad report PD MEDICAL DECISION MAKING - ED course Complexity details: reviewed results, re-evaluated patient, considered differential, d/w patient ED course: 70-year-old female with what appears to be diverticulitis. We will treat with Augmentin. She is well-appearing, nontoxic. Afebrile. She states she had a normal colonoscopy within the last year, doubt malignancy, but she will follow up with her doctor for this. Patient is tolerating p.o. without difficulty. Patient counseled regarding signs and symptoms for which I believe and urgent re-evaluation would be necessary. Patient with good understanding of and agreement to plan and is comfortable going home at this time This document was made in part using voice recognition software. While efforts are made to proofread this document, sound alike and grammatical errors may occur. CT abdomen and pelvis IMPRESSION: Long segment diverticulitis involving the descending colon and proximal sigmoid colon. Disproportionate degree of circumferential wall thickening in the proximal sigmoid colon relative to the degree of inflammatory changes. This is suspicious for an underlying malignancy, which will need clinical exclusion when feasible. No findings of flow-limiting stenosis in the mesenteric vasculature. Departure - Departure Disposition: 01 Home, Self Care Clinical Impression: Diverticulitis Condition: Good Instructions: ED Diverticulitis Follow-Up: Mert Gaitan DO [Primary Care Provider] - Within 1 week Prescriptions: Amox/Clav 875/125 [Augmentin] 1 each PO Q8H #30 tablet Comments: Take all antibiotics until gone. Follow-up with your doctor for repeat evaluation within 1 week. You need to have a colonoscopy scheduled as well. CT SCAN: IMPRESSION: Long segment diverticulitis involving the descending colon and proximal sigmoid colon. Disproportionate degree of circumferential wall thickening in the proximal sigmoid colon relative to the degree of inflammatory changes. This is suspicious for an underlying malignancy, which will need clinical exclusion when feasible. No findings of flow-limiting stenosis in the mesenteric vasculature. Discharge Date/Time: 02/18/21 17:57
[2021-02-18 16:06] LABS: ALBUMIN 4.2 g/dL (3.2-5.5); ALBUMIN/GLOBULIN RATIO 1.3 (1.0-2.2); BILIRUBIN,TOTAL 1.1 mg/dL (0.2-1.0); CREATININE 0.6 mg/dL (0.4-1.0); POTASSIUM 3.6 mmol/L (3.5-5.0); TOTAL PROTEIN 7.5 g/dL (6.7-8.2)
[2021-02-18] MEDS ORDERED: IOVERSOL 320 100 ML VIAL IVP ONE ×2 (16:15→16:43)
--- NOTE | 2021-02-18 17:11 | CT Report ---
PROCEDURE: ANGIO ABDOMEN/PELVIS W INDICATIONS: LLQ pain, h/o ischemic colitis CONTRAST: IV CONTRAST: Optiray 320 ml: 100 PO CONTRAST: *NO PO CONTRAST TECHNIQUE: After the administration of intravenous contrast, 2 and 5 mm sections acquired from the diaphragm to the iliac crests. 3-dimensional maximum intensity projection (MIP) coronal and sagittal reformats, a nd/or 3-dimensional volume rendering reformatting was then performed. For radiation dose reduction, the following was used: automated exposure control, adjustment of mA and/or kV according to patient size. COMPARISON: 10/06/2019 CT abdomen and pelvis FINDINGS: Image quality: Excellent. Lung bases: Lung bases are clear. Solid abdominal viscera: Liver and spleen are normal in size and enhancement. Gallbladder is normal. Biliary system is non dilated. Pancreas enhances normally. No adrenal nodules. Kidneys are nga l in size and enhancement, without hydronephrosis. Enteric tract: There is a long segment of colonic wall thickening involving the descending colon and proximal sigmoid colon with adjacent inflammatory fat stranding and fluid. Numerous diverticula are s een in this region. In the sigmoid colon the wall thickening appears disproportionate relative to the degree of adjacent inflammatory changes, suspicious for underlying neoplasm. Abdominal aorta: Nonaneurysmal without hemodynamic significant stenosis. Only minimal scattered area s of atherosclerotic plaque and calcification identified. Mesenteric arteries: Widely patent celiac axis, superior mesenteric artery, and inferior mesenteric artery. Renal arteries: Widely patent. IMPRESSION: Long segment diverticulitis involving the descending colon and proximal sigmoid colon. Disproportionate degree of circumferential wall thickening in the proximal sigmoid colon relative to the degree of inflammatory changes. This is suspicious for an underlying malignancy, which will need clinical exclusion when feasible. No findings of flow-limiting stenosis in the mesenteric vasculature. Reviewed by: Erick Phelan MD on 02/18/2021 5:09 PM PDT Approved by: Erick Phelan MD on 02/18/2021 5:09 PM PDT Station ID: [id number]
[2021-02-18] MEDS ORDERED: AMOX/CLAV 875 MG/125 MG TABLET PO STA (17:46)
[2021-02-18 17:57] VITALS: BP 122/74
== END 2021-02-18 17:57 | disposition home or self-care (01) ==
LOC: ED 15:20
DX: K57.33 Diverticulitis of large intestine without perforation or abscess with bleeding (principal)
CPT/HCPCS: 36415; 74174; 80053; 83605; 83690; 85025; 99284; A9270; Q9967

== ENCOUNTER 2021-09-28 08:00 | Outpatient (CLI) | payer MEDICARE, OTHER ==
[2021-09-28 20:43] LABS: BILIRUBIN,URINE NEGATIVE (NEGATIVE); GLUCOSE, URINE (UA) NEGATIVE (NEGATIVE); KETONES,URINE (UA) NEGATIVE (NEGATIVE); LEUKOCYTE ESTERASE, URINE NEGATIVE (NEGATIVE); NITRITE,URINE NEGATIVE (NEGATIVE); OCCULT BLOOD,URINE NEGATIVE (NEGATIVE); PH,URINE 6.5 PH (5.0-7.5); PROTEIN,URINE NEGATIVE (NEGATIVE); UROBILINOGEN,URINE 0.2 (NORMAL) E.U./dL (NORMAL)
[2021-09-28 20:45] LABS: CLARITY,URINE CLEAR (CLEAR)
[2021-09-28 20:56] LABS: BACTERIA,URINE Rare /HPF (None Seen); RBC,URINE 0-5 /HPF (0-5); SQUAMOUS EPITHELIAL CELL,UR FEW Squamous (<= Few); WBC,URINE 0-3 /HPF (0-5)
== END 2021-09-28 23:59 | disposition home or self-care (01) ==
LOC: LAB 08:00
PROVIDERS: ATTEND Emergency Medicine
DX: R30.0 Dysuria (principal)
CPT/HCPCS: 81001; 87086

== ENCOUNTER 2021-10-04 08:00 | Outpatient (CLI) | payer MEDICARE, OTHER | END 2021-10-04 23:59 | disposition home or self-care (01) | LOC: LAB 08:00 | PROVIDERS: ATTEND Family Medicine | DX: R30.0 Dysuria (principal) | CPT/HCPCS: 87086 ==

== ENCOUNTER 2021-10-10 14:10 | Outpatient (CLI) | payer MEDICARE, OTHER | END 2021-10-10 14:11 | disposition home or self-care (01) | LOC: LAB 14:10 | PROVIDERS: ATTEND Family Medicine | DX: R31.9 Hematuria, unspecified (principal); R30.0 Dysuria | CPT/HCPCS: 87086 ==

== ENCOUNTER 2021-10-11 16:09 | Outpatient (CLI) | payer MEDICARE, OTHER ==
[2021-10-11 16:32] LABS: CALCIUM 9.8 mg/dL (8.5-10.3); CREATININE 0.6 mg/dL (0.4-1.0); POTASSIUM 4.2 mmol/L (3.5-5.0)
== END 2021-10-11 16:10 | disposition home or self-care (01) ==
LOC: LAB 16:09
PROVIDERS: ATTEND Family Medicine
DX: R31.9 Hematuria, unspecified (principal); R30.0 Dysuria
CPT/HCPCS: 36415; 80048

== ENCOUNTER 2021-10-13 10:50 | Outpatient (CLI) | payer MEDICARE, OTHER ==
[2021-10-13] MEDS ORDERED: IOVERSOL 320 100 ML VIAL IVP ONE (11:42)
--- NOTE | 2021-10-13 12:46 | CT Report ---
PROCEDURE: IVP INDICATIONS: HEMATURIA, DYSURIA CONTRAST: IV CONTRAST: Optiray 320 ml: 140 PO CONTRAST: *NO PO CONTRAST TECHNIQUE: After the administration of oral and intravenous contrast, 5 mm thick sections acquired from the diap hragms to the symphysis. 5 mm thick coronal and sagittal reformats were acquired. For radiation dos e reduction, the following was used: automated exposure control, adjustment of mA and/or kV accordin g to patient size. COMPARISON: None. FINDINGS: Image quality: Excellent. Lung bases: Lung bases are clear. Heart size is normal. Urinary system: Both kidneys are normal in size and enhancement. The right kidney has a 2.8 cm simpl e cyst superior pole Contrast-filled renal calyces are normal in morphology. Contrast filled portion s of both ureters are normal in caliber. Bladder wall thickness is normal. Solid organs: Liver and spleen are normal in size and enhancement. A subcentimeter hypodensity in t he medial right lobe of the liver is too small to further characterize but is likely a cyst. Gallblad richie is normal Biliary system is non dilated. Pancreas enhances normally. No adrenal nodules. Peritoneum and bowel: Bowel loops demonstrate normal wall thickness and caliber. The left colon has diverticulosis without evidence of diverticulitis. Anastomotic sutures are present in the right colo n. No free fluid or air. There is a small hiatal hernia. Nodes and vessels: No retroperitoneal or mesenteric adenopathy by size criteria. Aorta and inferior vena cava are normal in size. Abdominal wall: No ventral hernias. Pelvis: No pathologic free pelvic fluid. No inguinal hernias or adenopathy. Bones: No suspicious bony lesions. No vertebral body compression fractures. IMPRESSION: 1. No kidney stones. 2. No solid renal masses. 3. No bladder, calyceal, or ureteral filling defect. 4. Small hiatal hernia. Reviewed by: Skip Arzola on 10/13/2021 12:45 PM PST Approved by: Skip Arzola on 10/13/2021 12:45 PM PST Station ID: [id number]
== END 2021-10-13 10:51 | disposition home or self-care (01) ==
LOC: DI 10:50
PROVIDERS: ATTEND Family Medicine
DX: R31.9 Hematuria, unspecified (principal); R30.0 Dysuria; K44.9 Diaphragmatic hernia without obstruction or gangrene
CPT/HCPCS: 74178; Q9967

== ENCOUNTER 2021-12-04 14:03 | Outpatient (CLI) | payer MEDICARE, OTHER ==
--- NOTE | 2021-12-05 14:36 | Mammography Report ---
BILATERAL DIGITAL SCREENING MAMMOGRAM 3D/2D: 12/04/2021 CLINICAL: Routine screening. Comparison is made to exams dated: 04/20/2019 mammogram, 02/13/2018 mammogram, and 02/08/2017 mammogram - [facility]. There are scattered fibroglandular elements in both breasts. No significant masses, calcifications, or other findings are seen in either breast. There has been no significant interval change. IMPRESSION: NEGATIVE There is no mammographic evidence of malignancy. A 1 year screening mammogram is recommended. This exam was interpreted at Station ID: [id number]. NOTE: For mammograms, a report in lay terms will be sent to the patient. Approximately 15% of breast malignancies will not be visualized mammographically. In the management of a palpable breast mass, a negative mammogram must not discourage biopsy of a clinically suspicious lesion. Electronically Signed By: Micha Golden M.D. ar/penrad:12/04/2021 14:54:58 ACR BI-RADS Category 1: Negative 3341F PARENCHYMAL PATTERN: (A) - The breast(s) demonstrate(s) scattered fibroglandular densities. BI-RADS CATEGORY: (1) - 1 RECOMMENDATION: (ANNUAL) - Recommend routine annual screening mammography. [id number] 1 year screening LATERALITY: (B)
== END 2021-12-04 14:04 | disposition home or self-care (01) ==
LOC: DI 14:03
DX: Z12.31 Encounter for screening mammogram for malignant neoplasm of breast (principal)

== ENCOUNTER 2021-12-19 08:00 | Outpatient (CLI) | payer MEDICARE, OTHER ==
[2021-12-19 21:24] LABS: BACTERIAL VAGINOSIS DNA NEGATIVE (NEGATIVE); CANDIDA GLABRATA DNA NEGATIVE (NEGATIVE); CANDIDA GROUP DNA NEGATIVE (NEGATIVE); CANDIDA KRUSEI DNA NEGATIVE (NEGATIVE); TRICHOMONAS VAGINALIS DNA NEGATIVE (NEGATIVE)
== END 2021-12-19 23:59 ==
LOC: LAB.R 08:00
PROVIDERS: ATTEND Obstetrics & Gynecology
DX: N76.0 Acute vaginitis (principal)
CPT/HCPCS: 87661; 87801

== ENCOUNTER 2022-04-26 08:00 | Outpatient (CLI) | payer MEDICARE, OTHER ==
--- NOTE | 2022-04-26 14:59 | XRAY Report ---
PROCEDURE: Toe(s) LT INDICATIONS: LEFT SMALL TOE PAIN TECHNIQUE: 3 views of the left fifth toe(s) acquired. COMPARISON: None FINDINGS: Bones: No fractures or dislocations. No suspicious bony lesions. Soft tissues: No suspicious soft tissue densities. IMPRESSION: No fracture. No osseous lesion. If symptoms and/or clinical concern for pathology persists, further a ssessment with advanced imaging (CT, MR, bone scan) should be considered. Reviewed by: Ammy Robbins MD, PhD on 04/26/2022 2:57 PM PDT Approved by: Ammy Robbins MD, PhD on 04/26/2022 2:57 PM PDT Station ID: [id number]
== END 2022-04-26 23:59 | disposition home or self-care (01) ==
LOC: DI.S 08:00
PROVIDERS: ATTEND Physician Assistant
DX: M79.675 Pain in left toe(s) (principal)
CPT/HCPCS: 73660

== ENCOUNTER 2022-08-22 10:38 | Outpatient (CLI) | payer MEDICARE, OTHER ==
--- NOTE | 2022-08-22 11:41 | DEXA Report ---
PROCEDURE: Dexa Spine and/or Hip INDICATIONS: OSTEOPOROSIS TECHNIQUE: Dual energy x-ray absorptiometry (DXA) was performed on a [employer] System. Regions measur ed are the AP Spine, femoral neck, and if needed forearm. COMPARISON: DEXA 08/19/2020. FINDINGS: Lumbar Spine: Bone Mineral Density 1.094 g/cm/cm,T score -0.8, normal, approximately 9.3% increased when compare d to the DEXA from 08/19/2020. Left Hip: Bone Mineral Density 0.705 g/cm/cm,T score -2.4, osteopenia, not significantly changed when compared to the DEXA from 08/19/2020. Left Femoral Neck: Bone Mineral Density 0.612 g/cm/cm, T score -3.1, osteoporosis (T score greater or equal to -1.0: NORMAL) (T score from -1.1 to -2.4: OSTEOPENIA) (T score less than or equal to -2.5 to: OSTEOPOROSIS) Impression: Bone mineral density within the osteoporosis range at the left femoral neck. Bone marrow density has increased in the lumbar spine when compared to the prior DEXA from 08/19/2020. Patients with diagnosis of osteoporosis or osteopenia should have regular bone mineral density assess ment. For those eligible for Medicare, routine testing is allowed once every 2 years. Testing frequ ency can be increased for patients who have rapidly progressing disease or for those who are receivin g medical therapy to restore bone mass. Reviewed by: Micha Golden MD on 08/22/2022 11:40 AM PDT Approved by: Micha Golden MD on 08/22/2022 11:40 AM PDT Station ID: [id number]
== END 2022-08-22 10:39 | disposition home or self-care (01) ==
LOC: DI 10:38
PROVIDERS: ATTEND Internal Medicine
DX: M81.0 Age-related osteoporosis without current pathological fracture (principal)

== ENCOUNTER 2022-08-27 12:57 | Outpatient (CLI) | payer MEDICARE, OTHER ==
--- NOTE | 2022-08-27 16:08 | XRAY Report ---
PROCEDURE: Lumbar Spine 2 View INDICATIONS: LUMBAR RADICULPATHY TECHNIQUE: 2 views of the lumbar spine were acquired. COMPARISON: None. FINDINGS: Bones: There are 5 lumbar-type vertebral bodies. Trace leftward spinal curvature. Mild to moderate ov erall spondylosis with disc space height loss, facet arthropathy, and osteophyte formation. No defini te acute fracture or traumatic subluxation. Soft tissues: Overlying bowel gas pattern is normal. No suspicious soft tissue calcifications. IMPRESSION: Mild to moderate spondylosis. Consider MRI to further evaluate if necessary. Reviewed by: Venkata Loera MD on 08/27/2022 4:07 PM PDT Approved by: Venkata Loera MD on 08/27/2022 4:07 PM PDT Station ID: [id number]
== END 2022-08-27 12:58 | disposition home or self-care (01) ==
LOC: DI 12:57
PROVIDERS: ATTEND Physician Assistant
DX: M47.26 Other spondylosis with radiculopathy, lumbar region (principal)

== ENCOUNTER 2022-09-26 10:36 | Outpatient (CLI) | payer MEDICARE, OTHER ==
--- NOTE | 2022-09-26 14:35 | MRI Report ---
PROCEDURE: LUMBAR SPINE WO INDICATIONS: LOW BACK PAIN TECHNIQUE: Noncontrast sagittal T1 spin echo and T2 fast echo, sagittal STIR, axial T1 and T2 fast spin echo thr ough the lumbar spine. In cases with scoliosis, additional coronal T2 fast spin echo may be performe d. COMPARISON: Radiograph 08/27/2022 FINDINGS: Image quality: Good Alignment: Trace retrolisthesis of L2 on L3. Marrow: Scattered Modic changes. Multilevel disc space height loss and desiccation, particularly L2-L 3 and L3-L4. Cord: Conus is at T12-L1, with normal appearance of the common acquired at nerve roots. Soft tissues: Right renal cyst. No paravertebral fluid collection. Specific levels: T12-L1: No stenosis. L1-L2: Mild facet arthropathy. No stenosis. L2-L3: Small diffuse disc bulge and facet arthropathy. Mild central narrowing and right subarticular recess narrowing. Mild bilateral neural foraminal narrowing. L3-L4: Facet arthropathy and diffuse disc bulge. Mild central narrowing involving the subarticular re cesses. Mild bilateral neural foraminal narrowing. L4-L5: Diffuse disc bulge and moderate facet arthropathy. No central stenosis. Minimal left neural fo raminal narrowing. L5-S1: Small diffuse disc bulge. Mild left neural foraminal narrowing. IMPRESSION: Spondylosis as described above, worst at L3-L4 and L2-L3. Mild areas of narrowing above without critical stenosis. Reviewed by: Venkata Loera MD on 09/26/2022 2:34 PM PDT Approved by: Venkata Loera MD on 09/26/2022 2:34 PM PDT Station ID: [id number]
== END 2022-09-26 10:37 | disposition home or self-care (01) ==
LOC: DI 10:36
PROVIDERS: ATTEND Internal Medicine
DX: M47.26 Other spondylosis with radiculopathy, lumbar region (principal); M48.061 Spinal stenosis, lumbar region without neurogenic claudication; M48.07 Spinal stenosis, lumbosacral region

== ENCOUNTER 2022-11-07 08:28 | Outpatient (CLI) | payer MEDICARE, OTHER ==
[2022-11-07 09:08] LABS: ALBUMIN 4.1 g/dL (3.2-5.5); ALBUMIN/GLOBULIN RATIO 1.3 (1.0-2.2); ALKALINE PHOSPHATASE 42 IU/L (42-121); ALT ALANINE AMINOTRANSFERASE 17 IU/L (10-60); AST ASPARTATE AMINOTRANSFERASE 25 IU/L (10-42); BILIRUBIN,TOTAL 0.5 mg/dL (0.2-1.0); BUN - BLOOD UREA NITROGEN 12 mg/dL (6-20); CALCIUM 9.1 mg/dL (8.5-10.3); CARBON DIOXIDE - CO2 31 mmol/L (21-32); CHLORIDE 103 mmol/L (101-111); CHOL/HDL RATIO 3.3 (<4.4); CHOLESTEROL 160 mg/dL; CREATININE 0.6 mg/dL (0.4-1.0); GFR - MDRD 99 (>89); GLUCOSE 103 mg/dL (70-100); HDL CHOLESTEROL 49 mg/dL; LDL CHOLESTEROL,CALCULATED 84 mg/dL; LDL/HDL RATIO 1.7 (<4.4); POTASSIUM 4.4 mmol/L (3.5-5.0); SODIUM 137 mmol/L (135-145); TOTAL PROTEIN 7.3 g/dL (6.7-8.2); TRIGLYCERIDES 134 mg/dL; VLDL CHOLESTEROL 27 mg/dL
== END 2022-11-07 08:29 | disposition home or self-care (01) ==
LOC: LAB 08:28
PROVIDERS: ATTEND Internal Medicine
DX: E78.49 Other hyperlipidemia (principal)
CPT/HCPCS: 36415; 80053; 80061; 83721

== ENCOUNTER 2023-09-18 15:12 | Outpatient (CLI) | payer MEDICARE, OTHER ==
[2023-09-18 16:11] LABS: CREATININE 0.6 mg/dL (0.6-1.3)
== END 2023-09-18 15:13 | disposition home or self-care (01) ==
LOC: LAB 15:12
PROVIDERS: ATTEND Physical Medicine & Rehabilitation
DX: R10.2 Pelvic and perineal pain (principal)
CPT/HCPCS: 36415; 82565

== ENCOUNTER 2023-10-01 12:27 | Outpatient (CLI) | payer MEDICARE, OTHER ==
[2023-10-01] MEDS ORDERED: iohexoL-300 100 ML VIAL IVP ONE (15:16)
[2023-10-01] MEDS ORDERED: BARIUM SULFATE 450 ML BOTTLE PO ONE (15:16)
--- NOTE | 2023-10-01 16:08 | CT Report ---
PROCEDURE: ABDOMEN/PELVIS W INDICATIONS: PELVIC PAIN CONTRAST: 100mL Omni 300 TECHNIQUE: After the administration of oral and intravenous contrast, 5 mm thick sections acquired from the diap hragms to the symphysis. 5 mm thick coronal and sagittal reformats were acquired. For radiation dos e reduction, the following was used: automated exposure control, adjustment of mA and/or kV accordin g to patient size. COMPARISON: CT IVP dated 10/13/2021, CT angiography of the abdomen and pelvis dated 02/18/2021 FINDINGS: Image quality: Excellent. Lung bases and heart: Unremarkable. Liver: No solid mass. Gallbladder and biliary tree: No radiopaque stones or wall thickening. No biliary dilation. Spleen: No splenomegaly. Pancreas: No pancreatic ductal dilation. Adrenals: No adrenal nodule. Kidneys and ureters: No hydronephrosis. No renal cystic lesion which requires follow up. No solid mas s. Bowel and peritoneum: Question remote partial proximal colectomy. There are no obstructing or constri cting lesions. There is diverticulosis without evidence of diverticulitis. No dilated loops. No const rictive loops. Lymph nodes: No central or retroperitoneal adenopathy. Vessels: No infrarenal aortic aneurysm. PELVIS Reproductive organs: Unremarkable. Bladder: No abnormal wall thickening, accounting for underdistension. Pelvic lymph nodes: No pelvic adenopathy by size criteria. Bones: No aggressive osseous abnormality. Other: No significant ventral or inguinal hernia. IMPRESSION: 1. No acute abdominal process. 2. Diverticulosis without evidence of diverticulitis. Reviewed by: Hossein Ulloa MD on 10/01/2023 4:07 PM PDT Approved by: Hossein Ulloa MD on 10/01/2023 4:07 PM PDT Station ID: [id number]
== END 2023-10-01 12:28 | disposition home or self-care (01) ==
LOC: DI 12:27
PROVIDERS: ATTEND Physical Medicine & Rehabilitation
DX: K57.30 Diverticulosis of large intestine without perforation or abscess without bleeding (principal); R10.2 Pelvic and perineal pain; M53.3 Sacrococcygeal disorders, not elsewhere classified; M47.816 Spondylosis without myelopathy or radiculopathy, lumbar region
CPT/HCPCS: 74177; A9270; Q9967

== ENCOUNTER 2024-05-09 15:28 | Emergency (ER) | payer MEDICARE, OTHER ==
[2024-05-09 15:46] VITALS: BP 135/72; O2SAT 99
[2024-05-09 15:54] LABS: BASOPHILS % (AUTO) 0.5 %; EOSINOPHILS # (AUTO) 0.1 10^3/uL (0.0-0.7); EOSINOPHILS % (AUTO) 2.1 %; LYMPHOCYTES # (AUTO) 1.8 10^3/uL (1.5-3.5); LYMPHOCYTES % (AUTO) 30.5 %; MEAN CORPUSCULAR HEMOGLOBIN 31.1 pg (27.0-31.0); MEAN CORPUSCULAR HGB CONC 32.6 g/dL (32.0-36.0); MEAN CORPUSCULAR VOLUME 95.4 fL (81.0-99.0); MEAN PLATELET VOLUME 9.3 fL (7.9-10.8); MONOCYTES # (AUTO) 0.8 10^3/uL (0.0-1.0); MONOCYTES % (AUTO) 14.3 %; NEUTROPHILS % (AUTO) 52.4 %; PLT - PLATELET COUNT 225 10^3/uL (130-450); RED BLOOD COUNT 4.82 10^6/uL (4.20-5.40); RED CELL DISTRIBUTION WIDTH 11.9 % (12.0-15.0); WHITE BLOOD COUNT 5.7 x10^3/uL (4.8-10.8)
[2024-05-09 16:10] LABS: ALBUMIN 4.3 g/dL (3.2-5.5); BILIRUBIN,TOTAL 0.6 mg/dL (0.2-1.0); CALCIUM 9.8 mg/dL (8.5-10.3); CREATININE 0.6 mg/dL (0.6-1.3); POTASSIUM 3.8 mmol/L (3.5-4.5); TOTAL PROTEIN 6.5 g/dL (6.4-8.9)
== END 2024-05-09 17:38 | disposition left against medical advice (07) ==
LOC: ED 15:28
DX: Z53.21 Procedure and treatment not carried out due to patient leaving prior to being seen by health care provider (principal)
CPT/HCPCS: 36415; 80053; 83690; 85025